=== PATIENT | male | born 1945 | race Caucasian/White ===

== ENCOUNTER → 2017-11-07 13:39 | Outpatient (CLI) | payer MEDICARE, OTHER, SELFPAY ==
--- NOTE | 2017-11-07 | DI.ECHO.S_ITS ---
[place] [facility]---------+ [facility] +---------+ : : [address] : : : : [id number] : : : : Phone: [phone] +---------+ Echocardiogram Report + + :Name: FRANCISCO CONTEH Study Date: 11/07/2017 Height: 71 in : :[facility] Weight: 171 lb : : Gender: Male BSA: 2.0 m2 : :: 1945 Age: 72 yrs BP: 116/74 mmHg: :Reason For Study: Arrhythmia, SVT- Paroxsymal : :Ordering Physician: Herminio Reyes : :[place] Performed By: Candi Isabel : + + Interpretation Summary The left ventricle is mildly dilated. The ejection fraction is estimated to be 45-50%. Lateral apical hypokinesis-mild. The right ventricle is mild to moderately dilated. The right ventricular systolic function is normal. The left atrium is severely dilated. The right ventricular systolic pressure is estimated at 36 mmHg assuming a right atrial pressure of 15 mm Hg. There is mild tricuspid regurgitation. The aortic root is severely dilated. The ascending aorta is mildly enlarged. Procedure: A two-dimensional transthoracic echocardiogram with color flow and Doppler was performed. The study quality was technically good. There is no prior echocardiogram noted for this patient. The patient was in sinus bradycardia with heart rates between 42-56 bpm during the exam. Left Ventricle: The left ventricle is mildly dilated. There is normal left ventricular wall thickness. The ejection fraction is estimated to be 45-50%. Lateral apical hypokinesis-mild. Assessment of diastolic parameters indicates a relaxation abnormality of the left ventricle, consistent with normal filling pressures. Right Ventricle: The right ventricle is mild to moderately dilated. The right ventricular systolic function is normal. Atria: The left atrium is severely dilated. Right atrial size is normal. There is no Doppler evidence for an interatrial shunt. Mitral Valve: There is a flat closure plane of the the mitral valve leaflets. There is trace mitral regurgitation. Aortic Valve: The aortic valve is trileaflet. The aortic valve opens well. No aortic regurgitation is present. Tricuspid Valve: The tricuspid valve leaflets are thin and pliable. The right ventricular systolic pressure is estimated at 36 mmHg assuming a right atrial pressure of 15 mm Hg. There is mild tricuspid regurgitation. Pulmonic Valve: The pulmonic valve is not well seen, but is grossly normal. There is a trace or physiologic amount of pulmonic regurgitation. Great Vessels: The aortic root is severely dilated. The ascending aorta is mildly enlarged. The aortic arch is at the upper limits of normal in size. The IVC is dilated (diameter is greater than 2.1 cm) and it collapses less than 50% with a sniff. This suggests a high right atrial pressure of 15 mm Hg. Pericardium/ Pleura There is no pericardial effusion. MMode/2D Measurements & Calculations LVIDd: 6.1 cm LVOT diam: 2.4 cm LVIDs: 4.0 cm Ao root diam: 5.1 cm FS: 34.1 % Aortic Jxn: 3.3 cm EPSS: 0.54 cm asc Aorta Diam: 3.9 cm IVSd: 0.72 cm Ao Arch Diam (Prox Trans): 3.1 cm LVPWd: 0.78 cm LV hernandez. diameter/BSA (cm/m^2): 3.1 LV sys. diameter/BSA (cm/m^2): 2.0 LA A2 area: 24.8 cm2 RA long axis: 6.0 cm LA A4 area: 21.4 cm2 RA area: 19.5 cm2 LA length (vol): 4.7 cm RA vol: 53.7 ml LA vol: 95.5 ml RA : 27.2 ml/m2 LA vol index: 48.4 ml/m2 IVC diam: 2.4 cm RVD1 (basal): 5.0 cm TAPSE: 2.7 cm Doppler Measurements & Calculations Ao V2 max: 117.5 cm/sec LVOT Max Bennie: 72.5 cm/sec Ao V2 mean: 77.6 cm/sec LV V1 max P.1 mmHg Ao max P.5 mmHg LV V1 VTI: 17.1 cm Ao mean P.0 mmHg HARJEET(I,D): 3.2 cm2 Ao V2 VTI: 25.0 cm HARJEET(V,D): 2.8 cm2 sev ratio: 0.69 HARJEET indexed to BSA (cm^2/m^2): 1.6 MV E max bennie: 32.8 cm/sec TR max bennie: 231.5 cm/sec MV A max bennie: 36.7 cm/sec TR max P.4 mmHg MV E/A: 0.89 PA V2 max: 65.6 cm/sec Med Peak E' Bennie: 4.3 cm/sec PA V2 mean: 47.2 cm/sec E/E' med: 7.6 PA mean P.0 mmHg Lat Peak E' Bennie: 5.2 cm/sec PA Accel Time: 0.14 sec E/E' lat: 6.3 E/e' average: 7.0 MV dec time: 0.35 sec MV P1/2t: 103.0 msec MV /2t max bennie: 32.9 cm/sec MVA(P12t): 2.1 cm2 Reading Physician:06:25 PM
== END ==
PROVIDERS: Visit Provider Internal Medicine Cardiovascular Disease
DX: I47.1 Supraventricular tachycardia (principal); I07.1 Rheumatic tricuspid insufficiency
CPT/HCPCS: 93306

== ENCOUNTER → 2018-09-11 15:58 | Outpatient (CLI) | payer MEDICARE, OTHER, SELFPAY ==
--- NOTE | 2018-09-11 | DI.ECHO.S_ITS ---
[place] +---------+ [facility] +---------+ : : [address] : : : : [id number] : : : : Phone: [phone] +---------+ Echocardiogram Report + + :Name: FRANCISCO CONTEH Study Date: 09/11/2018 Height: 71 in : :[facility] Exam Location: [facility] Weight: 175 lb : : Gender: Male BSA: 2.0 m2 : :: 1945 Age: 73 yrs BP: 110/70 mmHg: :Reason For Study: Thoracic aortic ectasia : :Ordering Physician: Polo Moya Performed By: Lexy Page : :Referring: [email or web address] : + + Interpretation Summary The left ventricle is borderline dilated. LV end-diastolic diameter has decreased since last study. Left ventricular ejection fraction is estimated to be 50%. There has been no significant change since the previous study. Diastolic parameters suggest a relaxation abnormality of the left ventricle, consistent with probable normal filling pressures. The right ventricle is moderately dilated. The right ventricular systolic function is normal. There has been no significant change since the previous study. The right ventricular systolic pressure is estimated to be at least 36 mmHg based on an estimated right atrial pressure of 15 mm Hg. The left atrium is severely dilated. The right atrium is moderately dilated. There is no significant valvular heart disease. The aortic root is severely dilated. This is unchanged compared to the previous study. The ascending aorta is mildly enlarged. This is unchanged compared to the previous study. Procedure: A two-dimensional transthoracic echocardiogram with color flow and Doppler was performed. The study quality was technically adequate. Comparison is made with the echocardiogram of 11/07/2017. The heart rate ranged between 46-55 bpm during the study. Left Ventricle: The left ventricle is borderline dilated. There is normal left ventricular wall thickness. Left ventricular ejection fraction is estimated to be 50%. There has been no significant change since the previous study. Diastolic parameters suggest a relaxation abnormality of the left ventricle, consistent with probable normal filling pressures. Right Ventricle: The right ventricle is moderately dilated. The right ventricular systolic function is normal. There has been no significant change since the previous study. Atria: The left atrium is severely dilated. The right atrium is moderately dilated. There is no Doppler evidence for an interatrial shunt. Mitral Valve: There is a flat closure plane of the the mitral valve leaflets. There is trace mitral regurgitation. Aortic Valve: The aortic valve is trileaflet. The aortic valve opens well. No aortic regurgitation is present. Tricuspid Valve: The tricuspid valve is normal in structure and function. There is mild tricuspid regurgitation. The right ventricular systolic pressure is estimated to be at least 36 mmHg based on an estimated right atrial pressure of 15 mm Hg. Pulmonic Valve: The pulmonic valve is not well visualized. There is trace pulmonic regurgitation. There is no significant valvular heart disease. Great Vessels: The aortic root is severely dilated. This is unchanged compared to the previous study. The ascending aorta is mildly enlarged. This is unchanged compared to the previous study. The aortic arch is at the upper limits of normal in size. The pulmonary artery is not well visualized, but is probably normal size. The IVC is dilated (diameter is greater than 2.1 cm) and it collapses less than 50% with a sniff. This suggests a high right atrial pressure of 15 mm Hg. Pericardium/ Pleura There is no pericardial effusion. There is no pleural effusion. MMode/2D Measurements & Calculations LVIDd: 5.7 cm LVOT diam: 2.4 cm LVIDs: 4.2 cm Ao root diam: 5.1 cm FS: 26.5 % asc Aorta Diam: 3.9 cm EPSS: 0.24 cm Ao Arch Diam (Prox Trans): 3.1 cm IVSd: 0.87 cm LVPWd: 0.89 cm LV hernandez. diameter/BSA (cm/m^2): 2.8 LV sys. diameter/BSA (cm/m^2): 2.1 LA A2 area: 29.3 cm2 RA long axis: 5.6 cm LA A4 area: 26.7 cm2 RA area: 24.2 cm2 LA length (vol): 6.1 cm RA vol: 88.9 ml LA vol: 108.9 ml RA : 44.6 ml/m2 LA vol index: 54.6 ml/m2 IVC diam: 2.5 cm RVD1 (basal): 5.6 cm RVD2 (mid): 4.7 cm TAPSE: 3.4 cm Doppler Measurements & Calculations LVOT Max Bennie: 79.8 cm/sec MV E max bennie: 37.1 cm/sec LV V1 max P.6 mmHg MV A max bennie: 50.6 cm/sec LV V1 VTI: 16.6 cm MV E/A: 0.73 Med Peak E' Bennie: 4.5 cm/sec E/E' med: 8.2 Lat Peak E' Bennie: 4.6 cm/sec E/E' lat: 8.0 E/e' average: 8.1 MV dec time: 0.29 sec MV P1/2t: 81.8 msec TR max bennie: 226.6 cm/sec MV P1/2t max bennie: 37.3 cm/sec TR max P.5 mmHg MVA(P1/2t): 2.7 cm2 PA V2 max: 62.1 cm/sec PA V2 mean: 44.9 cm/sec PA mean P.88 mmHg SV(LVOT): 76.1 ml Reading Physician:05:27 PM
== END ==
PROVIDERS: Visit Provider Physician Assistant
DX: I07.1 Rheumatic tricuspid insufficiency (principal); I77.810 Thoracic aortic ectasia
CPT/HCPCS: 93306